=== PATIENT | male | born 1945 | race Caucasian/White ===

== ENCOUNTER 2017-07-14 17:44 | Emergency (ER) | payer MEDICARE ==
[~2017-07-14 17:44] MED LIST: ALLO100T PO; ASPI-110 PO; DILT31TA PO; GLIM2TAB PO; ISOS30TA3 PO; LATA.005%O EACH EYE; LEVEMIR SQ; LEVO.05 PO; LIPI40TA PO; LOSA50TA PO; METO50TA PO; POTA-163 PO; TESTPOW4; TRAD5TAB PO; WARF-18 PO; WARF-23 PO
[2017-07-14] MEDS ORDERED: AMIODARONE HCL 150 MG/3 ML VIAL IV ONE (17:45)
[2017-07-14] MEDS ORDERED: LIDOCAINE HCL 2% 100 MG/5 ML SYRINGE IV PUSH ONE (17:45)
[2017-07-14] MEDS ORDERED: EPINEPHrine HCL (1:10,000) 1 MG/10 ML SYRINGE IV ONE (17:45)
[2017-07-14] MEDS ORDERED: EPINEPHrine HCL (1:10,000) 1 MG/10 ML SYRINGE ONE (17:58)
--- NOTE | 2017-07-14 18:27 | PD ---
HPI Chief Complaint: Code Blue Time Seen by Provider: 18:12 Travel History International Travel<30 days: No Contact w/Intl Traveler<30days: No Traveled to known affect area: No History of Present Illness HPI The patient is a 72-year-old male who presents to the emergency department via EMS as a CODE BLUE. According to EMS the patient walked out to the garage with the family member when he suddenly fell backwards striking his head on the ground. The family member thought he is simply passed out, but then noted he was not breathing. When EMS arrived there was a family member who was performing CPR. EMS estimates the patient's downtime prior to arrival was 20 minutes. The initial rhythm was ventricular fibrillation. The patient received CPR, 4 rounds of epinephrine, 2 acid bicarbonate, and amiodarone 300 mg intravenously as well as 2 defibrillations prior to arrival. EMS states the patient went into ventricular fibrillation, then asystole, then an agonal rhythm , and then back into ventricular fibrillation. The patient is known to have a low history of a poor ejection fraction with previous coronary artery disease. The patient's blood sugar was above 150 according EMS prior to arrival. PFSH Past Medical History Hx Anticoagulant Therapy: Yes (COUMADIN) AAA: Yes (3.5 CM) Arthritis: Yes Asthma: No Atrial Fibrillation: Yes Autoimmune Disease: No Blood Disorders: Yes Anxiety: No Depression: No Heart Rhythm Problems: Yes (a-fib) Cancer: Yes (BLADDER CA.) Cardiac Catheterization: Yes (4 STENTS) Cardiomyopathy: Yes Cardiovascular Problems: Yes (HTN, CAD, CABG, STENTS, A-FIB, AAA ) High Cholesterol: Yes Chemotherapy: Yes (direct bladder) Chest Pain: Yes Congestive Heart Failure: Yes COPD: Yes Cerebrovascular Accident: Yes (2004) Coronary Artery Disease: Yes Diabetes: Yes (INSULIN) Diminished Hearing: No Endocrine: No Gastrointestinal Disorders: Yes (ESOPH DISCOMFORT WITH DRINKING, ESPECIALLY COLD WATER) GERD: No Glaucoma: No Genitourinary: Yes (BLADDER CA) Headaches: No Hepatitis: No Hiatal Hernia: No Hypertension: Yes Immune Disorder: No Implanted Vascular Access Dvce: No Kidney Stones: No Musculoskeletal: No Neurologic: Yes (2004) Psychiatric: No Reproductive: No Respiratory: Yes Immunizations Current: Yes Migraines: No Myocardial Infarction: Yes (Hx) Radiation Therapy: No Renal Failure: No Seizures: No Sickle Cell Disease: No Sleep Apnea: Yes (c-pap) Thyroid Disease: Yes Ulcer: No Past Surgical History Abdominal Surgery: No AICD: No Arteriovenous Shunt: No Cardiac Surgery: Yes (2X BYPASS,) Coronary Artery Bypass Graft: Yes (X 2 LAST ONE 1997) Coronary Stent: Yes Ear Surgery: No Endocrine Surgery: No Eye Surgery: Yes (RT EYE ) Genitourinary Surgery: Yes (bladder cancer, penile implant ) Gynecologic Surgery: No Insulin Pump: No Joint Replacement: No Neurologic Surgery: No Oral Surgery: No Pacemaker: No Thoracic Surgery: No Other Surgery: Yes Social History Alcohol Use: Yes (1 BEER PER DAY) Tobacco Use: No Substance Use: No Allergies-Medications (Allergen,Severity, Reaction): Coded Allergies: adenosine (Unverified Allergy, Severe, CHEST PAIN, 05/30/17) penicillin G (Unverified Allergy, Severe, HIVES, 05/30/17) Reported Meds & Prescriptions Reported Meds & Active Scripts Active Reported Allopurinol 100 Mg Tab 100 Mg PO DAILY Aspirin 81 (Aspirin) 81 Mg Tabdr 81 Mg PO DAILY Lipitor (Atorvastatin Calcium) 40 Mg Tab 40 Mg PO HS Cardizem (Diltiazem HCl) 30 Mg Tab 30 Mg PO DAILY Isosorbide Mononitrate ER (Isosorbide Mononitrate) 30 Mg Jose Ramon 30 Mg PO DAILY Glimepiride 2 Mg Tab 2 Mg PO BIDAC Levemir Inj (Insulin Detemir) 1,000 unit/ 10 ML Vial 10 Units SQ BID Do not mix with any other Insulin. Synthroid (Levothyroxine Sodium) 50 Mcg Tab 100 Mcg PO DAILY Tradjenta (Linagliptin) 5 Mg Tab 5 Mg PO DAILY Losartan (Losartan Potassium) 50 Mg Tab 50 Mg PO BID Metoprolol Tartrate 50 Mg Tab 50 Mg PO BID Potassium Chloride ER (Potassium Chloride) 20 Meq Tab 20 Meq PO BID Testosterone Cypionate (Testosterone Cypionate (Bulk)) 1 Pow Pow DAILY Warfarin 5 Mg Tab 5 Mg PO DIRECTED MONDAY, MONDAY, MONDAY, MONDAY Warfarin 2.5 Mg Tab 2.5 Mg PO DIRECTED MONDAY, MONDAY, MONDAY Xalatan Opth Drops (Latanoprost) 0.005% Drops 1 Drop EACH EYE DAILY Review of Systems ROS Limitations: Clinical Condition Physical Exam Exam Limitations: Clinical Condition Narrative GENERAL: 72-year-old male who arrives with CPR being performed. The patient has a bluish complexion from the head down to the anterior chest wall. SKIN: Cyanosis noted over the head and neck and cold to touch on the extremities. HEAD: 1.5 cm laceration over the posterior aspect of the head. EYES: Pupils are 4 mm bilateral and fixed. ENT: Nasal trumpet in the right knee area. Combitube in place. NECK: Trachea midline. No JVD. CARDIOVASCULAR: No audible rhythm. RESPIRATORY: Diminished breath sounds bilateral with Combitube in place. GASTROINTESTINAL: Abdomen obese, slightly distended. MUSCULOSKELETAL: Line in place anterior right tibia. NEUROLOGICAL: GCS of 3. PSYCHIATRIC: Unable to assess. Data Data Orders Orders Epinephrine (1:10,000) Inj (Epinephrine (07/14/17 17:58) MDM Medical Decision Making Medical Screen Exam Complete: Yes Emergency Medical Condition: Yes Medical Record Reviewed: Yes Differential Diagnosis Differential diagnosis includes sudden , ventricular fibrillation, asystole , myocardial infarction, intracranial hemorrhage, electrolyte abnormality. Narrative Course The patient arrived with CPR in progress. The patient was brought immediately to treatment room 11. CPR was continued, IV was established and the left upper extremity, the patient was placed on cardiac telemetry monitoring and continuous pulse oximetry monitoring. ACLS protocol was followed and the patient received several different ablations, epinephrine 1 mg intravenously every 3-5 minutes, and amiodarone 150 mg bolus. The patient was intubated using a C [place] an endotracheal tube, bilateral breath sounds were noted. The patient continued to have ACLS with several defibrillations, bedside ultrasound was performed, however, the patient had no cardiac activity. At that time the patient's downtime was 40 minutes, the patient was in persistent and resistant ventricular fibrillation with no cardiac activity. Therefore, the patient was pronounced at 6:01 PM. I did discuss the clinical course and the patient's ultimate with the family including the and the consultation room. I also discussed the patient with his primary physician, Dr. Ventura young, who will sign the certificate. The family was allowed to sit at the bedside after the patient was cleaned appropriately and the endotracheal tube was removed. Critical Care Narrative Aggregate critical care time was 35 minutes. Time to perform other separately billable procedures was not included in the critical care time. My time did not include minutes spent treating any other patients simultaneously or on activities that did not directly contribute to the patient's treatment. The services I provided to this patient were to treat and/or prevent clinically significant deterioration that could result in: Anoxia, hypoxia, aspiration, . I provided critical care services requiring my management, as noted below: Chart data review, documentation time, medication orders and management, vital sign assessments/reviewing monitor data, ordering and reviewing lab tests, ordering and interpreting/reviewing x-rays and diagnostic studies, care of the patient and discussion of the patient with the admitting physicians. Procedures Procedure Narrative INTUBATION: The patient was put in optimal position for the procedure. Rapid sequence intubation was initiated by me using 20 milligrams of etomidate IV and 100 milligrams of succinylcholine IV. The patient was intubated with a 8-0 cuffed endotracheal tube. Tube placement was confirmed by visualization of the tube and balloon passing through the cords and capnometry. Breath sounds were equal and well aerated bilaterally postintubation. No breath sounds over stomach. Patient tolerated procedure well. Diagnosis Primary Impression: Cardiopulmonary arrest Disposition: 20 Condition: Zafar Parisi MD Jul 14, 2017 18:26
== END 2017-07-14 20:50 | disposition expired ==
LOC: PHED 17:44
DX: I46.9 Cardiac arrest, cause unspecified (principal)
CPT/HCPCS: 31500; 92950; 99291; J0171; J0282